=== PATIENT | female | born 1970 | race Caucasian/White ===

== ENCOUNTER 2022-04-01 08:30 | Outpatient (CLI) | payer OTHER, SELFPAY ==
[2022-04-01 14:26] LABS: Free T4 Free Thyroxine* 0.79 ng/dL (0.70-1.85)
== END 2022-04-01 08:31 | disposition home or self-care (01) ==
PROVIDERS: PCP Physician Assistant Medical; Visit Provider Physician Assistant Medical
DX: E03.9 Hypothyroidism, unspecified (principal)
CPT/HCPCS: 84439; 84443

== ENCOUNTER 2022-06-12 07:57 | Outpatient (CLI) | payer OTHER, SELFPAY | END 2022-06-12 07:58 | disposition home or self-care (01) | LOC: OP CLINIC 07:57 | PROVIDERS: PCP Physician Assistant Medical; Visit Provider Surgery | DX: Z12.11 Encounter for screening for malignant neoplasm of colon (principal); K63.5 Polyp of colon; K57.30 Diverticulosis of large intestine without perforation or abscess without bleeding; K64.8 Other hemorrhoids; Z83.71 Family history of colonic polyps | CPT/HCPCS: 45385; 99153; J2250; J3010 ==

== ENCOUNTER 2022-06-23 12:58 | Outpatient (CLI) | payer OTHER, SELFPAY | END 2022-06-23 12:59 | disposition home or self-care (01) | LOC: NFLDREF 06-24 02:38 | PROVIDERS: PCP Physician Assistant Medical; Referring Provider Physician Assistant Medical; Visit Provider Physician Assistant Medical | DX: E03.9 Hypothyroidism, unspecified (principal) | CPT/HCPCS: 84443 ==

== ENCOUNTER 2022-06-25 14:47 | Outpatient (CLI) | payer OTHER, SELFPAY ==
--- NOTE | 2022-06-25 15:00 | CRLHL7_ITS ---
For Patients: As a result of the Century Cures Act, medical imaging exams and procedure reports are released immediately into your electronic medical record. You may view this report before your referring provider. If you have questions, please contact your health care provider. INDICATION: 52 year-old female. Irregular menses. TECHNIQUE: Transabdominal and transvaginal pelvic ultrasound. Grayscale images were obtained. FINDINGS: The uterus measures 9.0 x 4.0 x 4.7 cm. The endometrial stripe is thickened and heterogeneous measuring uptake 18 mm. It demonstrates some increased vascularity. Hysterosonography or hysteroscopy may be helpful. Tiny cervical nabothian cysts. The right ovary measures 2.7 x 0.8 x 1.3 cm. The left ovary measures 3.1 x 1.5 x 1.8 cm. Blood flow is identified in the ovaries. No free pelvic fluid. IMPRESSION: Thickened heterogeneous endometrium with subtle increased vascularity. Hysterosonography or hysteroscopy may be helpful. Dictated by Gonzalo Heller MD @ 06/25/2022 4:11:43 PM (Electronically Signed)
== END 2022-06-25 14:48 | disposition home or self-care (01) ==
LOC: US 14:48
PROVIDERS: PCP Physician Assistant Medical; Visit Provider Physician Assistant Medical
DX: N92.6 Irregular menstruation, unspecified (principal)
CPT/HCPCS: 76830; 76856